=== PATIENT | female | born 1950 | race Caucasian/White ===

== ENCOUNTER 2021-01-15 11:26 | Outpatient (CLI) | payer MEDICAID, SELFPAY ==
[2021-01-15 14:29] LABS: INR 0.95 (0.8-1.2)
[2021-01-15 14:50] LABS: Basophils # 0.1 10^3/uL (0.0-0.1); Basophils % 0.9 %; Eosinophils # 0.3 10^3/uL (0.0-0.8); Eosinophils % 4.7 %; Hematocrit 49.2 % (37.0-47.0); Hemoglobin 14.8 g/dL (11.5-15.3); Lymphocytes % 28.8 %; Mean Corpuscular HGB Conc 30.1 g/dL (30.0-36.0); Mean Platelet Volume 11.3 fL (7.4-10.4); Monocytes # 0.6 10^3/uL (0.2-0.9); Monocytes % 8.9 %; Neutrophils % 56.6 %; Nucleated Red Blood Cells % 0 %; Platelet Count 216 10^3/cmm (130-400); Red Blood Count 5.93 10^6/uL (4.1-5.3); Red Cell Distribution Width 18.8 % (12.1-15.1); White Blood Count 6.9 10^3/uL (4.0-10.0)
[2021-01-15 15:58] LABS: Carcinoembryonic Antigen 21.2 ng/mL (0.0-4.7); Thyroid Stimulating Hormone 1.74 uIU/mL (0.27-4.20)
[2021-01-15 16:11] LABS: Alanine Aminotransferase 24 U/L (0-33); Albumin Level 4.1 g/dL (3.5-5.2); Alkaline Phosphatase 104 IU/L (35-105); Anion Gap 17.6 (5-19); Aspartate Amino Transferase 26 U/L (0-32); Blood Urea Nitrogen 11 mg/dL (8-23); Calcium 8.7 mg/dL (8.5-10.5); Carbon Dioxide 21 mmol/L (22-29); Chloride 105 mmol/L (98-107); Globulin 3.1 g/dL (1.3-4.6); Glomerular Filtration Rate 83.2 mL/min (90-130); Glucose 131 mg/dL (65-115); Osmolality Calculated 291 mOsm/kg (285-295); Potassium 3.6 mmol/L (3.5-5.1); Sodium 140 mmol/L (136-145); Total Bilirubin 0.2 mg/dL (0.15-1.2); Total Protein 7.2 g/dL (6.6-8.7)
[2021-01-15 16:47] LABS: CA 125 4.7 U/mL (0-35)
--- NOTE | 2021-01-15 19:28 | ONC CON_ITS ---
Dr. Gordon New Patient Note Patient: Zaina Leyva Unit #: [id number]: 1950 Dicatated By: Robby Gordon M.D.Date of Visit: Jan 15, 2021 Onc MED New Patient/Consult Referring Physician: Ary Walker N.P. Chief Complaint: Suspected liver metastases. History of Present Illness: This is a 70-year-old woman who had surgery for both ovarian cancer and colon cancer in April 2020. She now has PET/CT findings which are suspicious for metastatic involvement in the liver. She had presented with a large pelvic mass. Her CT of the abdomen/pelvis on 04/14/2020 showed a large mixed solid cystic midline pelvic mass measuring up to 16 cm, compatible with gynecologic malignancy. A right costovertebral angle cystic structure along the medial right costovertebral angle measured 3.7 x 2.5 cm. The differential included cystic metastasis versus duplication cyst. And hepatic cyst measured 2.2 cm. Additional subcentimeter hypodensities within the liver were too small to characterize. On 05/15/2020 she underwent exploratory laparotomy with total abdominal hysterectomy, bilateral salpingo-oophorectomy, and comprehensive surgical staging. Intraoperatively she was noted to have a 20 cm friable cystic and solid left ovarian mass which ruptured with gentle manipulation. Also noted was a constricting intraluminal right colon lesion along with an enlarged, indurated mesenteric lymph node which was suspicious for metastasis. The procedure also included right hemicolectomy and appendectomy. 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 The omentum and multiple peritoneal biopsies were all negative. The peritoneal fluid cytology was negative. Pathologic staging on the ovary was T1c1, N0. The colon showed moderately differentiated adenocarcinoma with invasion through the muscularis propria into the pericolorectal tissue. It measured 3 x 2 x 1 cm. The margins were free. There was evidence of lymphovascular space invasion and perineural invasion. There was involvement in 4 of 19 lymph nodes, and there was metastatic involvement noted within the left fallopian tube measuring 0.5 cm. Pathologic staging was pT3, pN2a, pM1a. She had medical oncology consultation with Dr. Thurston on 06/19/2020. She was recommended to have adjuvant chemotherapy for the colon cancer. For a variety of reasons she failed to follow through with that. Surveillance CT of the abdomen/pelvis on 11/29/2020 showed a 4.5 x 3.5 mediastinal cyst abutting the right heart border and the IVC. It was noted to have slightly increased in size from the March 2020 study. The liver showed diffuse fatty infiltration. A new peripherally enhancing hypodense lesion in the anterior aspect of the medial segment of the left lobe measured 1.6 x 1.1 x 1.6 cm, felt to possibly represent metastatic disease. A 1.2 cm portacaval lymph node appeared stable. There was interval resolution of multiple hepatic cysts noted on the prior CT. On further evaluation with PET/CT the right-sided mediastinal cyst had an SUV of 1.5. 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 The liver showed several new FDG avid lesions, including one situated to the right of the falciform ligament with SUV 8.2, another to the left of the falciform ligament along the inferior margin of the left lobe with maximum SUV 4.9 9-1/3 in the medial aspect of the right lobe abutting the vena cava with SUV 9.39. Abdominal and pelvic lymph nodes were noted to demonstrate generally physiologic levels of activity. She is seen now for further management. She says that she has been feeling really tired lately. She has been having to take naps every afternoon. Her ECOG score is 1. She has good appetite. She has gained 20 pounds since her surgery. She does not have fever, night sweats, or hot flashes. She has some shortness of breath. She has just occasional cough. She occasionally has chest pain. She has not had any nausea/vomiting. She does not complain of abdominal pain. Bowel function has been okay. She has frequent urination with her diuretic. She has no significant joint or bone pain. She has just occasional headache. She says she gets lightheaded if she waits too long to eat. She has no numbness/paresthesia or other focal neurologic symptoms. Past Medical History: Her medical history includes colon cancer, coronary artery disease, hyperlipidemia, hypertension, ovarian cancer, peripheral arterial disease, and type II diabetes. Past Surgical History: On 05/15/2020 she underwent total abdominal hysterectomy with bilateral salpingo-oophorectomy and complete surgical staging along with right hemicolectomy and appendectomy. Her other surgical/procedural history includes abdominal hernia repair with mesh, angioplasty with stent placement to the right leg and angioplasty to the left leg, excision of benign breast tumors x 3, excision of skin cancer, and a procedure for precancer of the cervix. Medications: Adult Aspirin Regimen (81 mg) Tablet, enteric coated Oral daily, Benazepril HCl (40 mg) Tablet Oral daily, Clopidogrel Bisulfate (75 mg) Tablet Oral daily, hydroCHLOROthiazide (25 mg) Tablet Oral daily, metFORMIN HCl ER (MOD) (500 mg) Tablet SR 24 HR Oral b.i.d., Metoprolol Tartrate (25 mg) Tablet Oral b.i.d., Simvastatin (40 mg) Tablet Oral daily Allergies: Codeine Sulfate, Estrogens, Keflex, Levaquin, Lortab, Penicillins, Percocet, and Valium. Social History: Ms. Leyva is . She has a history of smoking beginning at age 17, previously up to 2 packs of cigarettes daily. As of 2016 she cut down to 1 pack/day. She does not drink alcohol. Family History: Mother still living at age 88. Father of bladder cancer at age 71. One brother had childhood cancer. A sister has been treated for lymphoma and another sister had throat cancer. Her paternal grandmother had diabetes. Review Of Symptoms: Constitutional - Lately she has been feeling really tired, enough that she has been taking naps. She has good appetite. She has been gaining weight. She has no fever, night sweats, or hot flashes. ECOG score is 1, Eyes - No change in vision, ENMT - No hearing loss or tinnitus. No sinus congestion/drainage. No mouth sores. No sore throat or difficulty swallowing, Hematologic/Lymphatic - No abnormal bruising or bleeding, Respiratory - She has some shortness of breath. She has just occasional cough. No pleuritic pain or hemoptysis, Cardiovascular - She occasionally has chest pain. No palpitations, Gastrointestinal - No nausea or vomiting. No heartburn or acid reflux. No diarrhea or constipation. No blood in the stool or black stools, Genitourinary (F) - No dysuria or hematuria. She has frequent urination with her diuretic. She has nocturia x 2. No urgency or incontinence, Musculoskeletal - No significant joint or bone pain, Integumentary - No skin rash or other skin changes, Neurologic - She occasionally has headache or dizziness. She gets lightheaded if she waits too long to eat. No numbness or tingling. No other focal neurologic symptoms, Psychiatric - No anxiety or depression. No insomnia. Vital Signs: Performed on Jan 15, 2021 12:55: 8, 0, 0.00 (LOW), sq.m, 95 % (LOW), 76 /min, 18 /min, 150/80 mm(hg) (HIGH), 97.6 F (LOW), and 204.2 lbs (HIGH). Physical Examination: Constitutional - She looks pretty good generally, Eyes - Sclerae nonicteric. Conjunctivae clear, ENMT - No lesions noted in the oral cavity, Neck - No mass or thyromegaly, Hematologic/Lymphatic - No cervical, clavicular, or axillary adenopathy, Respiratory - Lungs sound clear with diminished air movement bilaterally, Cardiovascular - Heart rhythm is regular. There is no murmur, gallop, or rub noted, Abdomen - Moderately distended. Liver and spleen are not enlarged. There is no abdominal mass noted. There is no obvious ascites. There is no inguinal adenopathy, Back/Spine - No spine or CVA tenderness noted, Extremities - No edema. She has a palpable posterior tibial pulse on the right and palpable dorsalis pedis on the left, Integumentary - No rashes. No suspicious skin lesions noted, Neurologic - No focal neurologic deficits noted. Problem List: 1. Patient with PET/CT evidence of new metastatic lesions in the liver. The probability is very high that she has metastatic colon cancer. 2. On 05/15/2020 she underwent right hemicolectomy for moderately differentiated adenocarcinoma of the ascending colon. She had pathologic stage NU disease (pT3, pN2a, pM1a) with evidence of a metastatic lesion in the left fallopian tube. Her disease was completely resected. She failed to follow through with recommendations for adjuvant chemotherapy. 3. She had presented with a large pelvic mass due to a cystic left ovarian tumor. Her surgery included total abdominal hysterectomy and bilateral salpingo-oophorectomy and complete surgical staging. The cyst ruptured intra-operatively. Pathology showed moderately mucinous adenocarcinoma measuring 21 cm. Pathologic staging was T1c1, N0. 4. Hypertension. 5. Hyperlipidemia. 6. Type II diabetes. 7. Coronary artery disease. 8. Peripheral arterial disease. Problems Addressed with this Encounter and Plan: Patient with PET/CT evidence of new metastatic lesions in the liver. The PET/CT findings were reviewed with the patient and we discussed the clinic complications. As noted, the probability is very high that she has metastatic colon cancer. Assuming this is the case, her disease will potentially be treatable, but in all likelihood not curable. In this situation she will definitely require biopsy to confirm a tissue diagnosis, and to that end I will review the CT and PET/CT scans with the radiologist. Assuming that a suspicious lesion is accessible for biopsy, she can then be scheduled for CT directed needle biopsy. In the meantime, I will check baseline amatory studies today to include CBC, comprehensive metabolic profile, TSH level, CEA level, and CA-125 level. I will plan to see her again for further discussion of treatment options when the pathology results are available. Signed By: Robby Gordon M.D. <<Signature on File>>
== END 2021-01-15 11:27 | disposition home or self-care (01) ==
PROVIDERS: PCP Nurse Practitioner Family; Visit Provider Internal Medicine Medical Oncology
DX: C18.2 Malignant neoplasm of ascending colon (principal); C78.7 Secondary malignant neoplasm of liver and intrahepatic bile duct; C79.62 Secondary malignant neoplasm of left ovary; I10 Essential (primary) hypertension; E78.5 Hyperlipidemia, unspecified; E11.9 Type 2 diabetes mellitus without complications; I25.10 Atherosclerotic heart disease of native coronary artery without angina pectoris; I73.9 Peripheral vascular disease, unspecified; Z79.899 Other long term (current) drug therapy
CPT/HCPCS: 80053; 82378; 84443; 85025; 85610; 86304; 99205

== ENCOUNTER 2021-01-25 08:22 | Outpatient (CLI) | payer MEDICAID, SELFPAY ==
--- NOTE | 2021-01-25 08:36 | CT_ITS ---
WS: [id number] CT ABDOMEN CONTRAST TECHNIQUE: Contrast enhanced CT of the abdomen with coronal and sagittal reformatted images. CLINICAL INFORMATION: LIVER METS COMPARISON: Outside examinations CT November 2020 and PET/CT December 2020. Ultrasound January 25, 2021 DLP: 1033.[address] scans at [facility] use at least one of these dose optimization techniques: automat ed exposure control; mA and/or kV adjustment per patient size (includes targeted exams where dose is matched to clinical indication); or iterative reconstruction. FINDINGS: Hepatomegaly. Diffuse fatty infiltration of the liver. 3 enhancing peripheral enhancing hepatic lesio ns measuring 1.2 x 1.5 CM. 2 of these are only faintly visualized. These are suspicious for metastasi s. Enhancing lesions in the medial segment of the left hepatic lobe, medial segment of the right hepa tic lobe, and right hepatic lobe near the IVC. These correspond to the prior findings on the PET/CT. Normal portal vein and splenic vein. Normal spleen. Adrenal glands are normal. Normal renal parenchym al enhancement. No hydronephrosis. Multiple left renal cysts the largest measuring 3.2 CM. Lung bases are well aerated. Stable low-atten uation lesion in the right cardiophrenic angle likely represents pericardial cyst or duplication cyst . Lung bases are well aerated. Normal caliber abdominal aorta. Aortic calcification. Normal GE junction . No periaortic lymphadenopathy. Normal caliber abdominal aorta. Slight anterolisthesis L4 on L5. CT/CT abdomen w con* [id number] IMPRESSION: 1. Hepatomegaly with diffuse fatty infiltration of the liver. 2. Three Enhancing 1.2-1.5 cm lesions in the liver described above suspicious for metastatic disease. These correspond to the FDG avid PET/CT findings. Note on follow-up imaging recommend triphasic liver protocol for better visualizatio n 3. Right cardiophrenic angle low-attenuation cystic-appearing lesion likely pe ricardial cyst or duplication cyst. This is unchanged. 4. Incidental left renal cyst. 5. No abdominal lymphadenopathy.
--- NOTE | 2021-01-25 08:38 | US_ITS ---
WS: [id number] ULTRASOUND ABDOMEN CLINICAL INFORMATION: SUSPECTED LIVER METS COMPARISON: Prior CT December 0606/12 and 01/25/2021, PET/CT January 06, 2021 FINDINGS: Technically difficult examination due to body habitus. Liver Size: Hepatomegaly Echogenicity: Diffuse fatty infiltration Surface nodularity: None. Mass (size and location): A few incidental hepatic cysts. Additional indeterminate hypoechoic lesions measuring 1.6 x 2.2 x 0.9 cm and 1.5 x 1.1 x 1.1 CCM. Bile ducts Intrahepatic ducts: Normal. Common bile duct diameter: 0.3 cm. Gallbladder Normal. Gallstones: None. Gallbladder sludge: None. Gallbladder wall thickening: None. Pericholecystic fluid: None. Sonographic Jimenez sign: Absent. Pancreas Not well seen Spleen Splenomegaly: None. Craniocaudal length: 10.0 cm. Right kidney: Normal. Hydronephrosis: None. Size: 10.7 cm x 5.0 cm x 4.2 cm Left kidney: Normal. Hydronephrosis: None. Size: 10.4 cm x 5.1 cm x 3.7 cm. Abdominal aorta and IVC Visualized portions are normal. Ascites: None. US/US abdomen complete* [id number] IMPRESSION: Technically difficult examination due to body habitus. 1. 2 hypoechoic indeterminant hepatic lesions described above. These are indet erminate but suspicious for metastasis. 2. A few additional incidental hepatic cysts. 3. Normal gallbladder. 4. No hydronephrosis in either kidney.
[2021-01-25] MEDS: iohexol 300 mg/mL 100 mL Btl IV (10:12)
== END 2021-01-25 08:23 | disposition home or self-care (01) ==
LOC: RAD 08:25
PROVIDERS: PCP Nurse Practitioner Family; Visit Provider Internal Medicine Medical Oncology
DX: C18.2 Malignant neoplasm of ascending colon (principal); R93.2 Abnormal findings on diagnostic imaging of liver and biliary tract; K76.89 Other specified diseases of liver; K76.9 Liver disease, unspecified
CPT/HCPCS: 74160; 76700

== ENCOUNTER 2021-01-31 11:12 | Day surgery (SDC) | payer MEDICAID, SELFPAY ==
[2021-01-29 11:09] VITALS: BMI 30.8
--- NOTE | 2021-01-31 11:59 | US_ITS ---
WS: [id number] ULTRASOUND LIVER LIMITED CLINICAL INFORMATION: COLON CA, LIVER METS COMPARISON: Ultrasound January 25, [address] October 06, 2021 and Outside examinations PET/CT 2020, CT November 2020, FINDINGS/IMPRESSION LIVER Hepatomegaly with diffuse infiltration. Coarse echogenicity. Several hepatic cysts are visualized wit h through transmission. Hypoechoic 1.8 cm lesion right hepatic lobe directly adjacent to bowel also a ppears partially cystic during the examination. No definite solid lesions corresponding to the PET/CT findings that are amenable to biopsy. Findings discussed with Dr. Gordon. Consider follow-up PET/CT for comparison to prior outside PET/CT from 2020.
[2021-01-31 12:02] VITALS: BP 138/84; PULSE 80; RESP 20; TEMP 36.8; O2SAT 97
[2021-01-31 12:40] LABS: Glucose Point of Care 127 mg/dL (70-110)
[2021-01-31 12:59] LABS: INR 1.03 (0.8-1.2)
[2021-01-31] MEDS: sodium chloride 0.9% 1,000 ML 30 ML IV (13:40)
--- NOTE | 2021-01-31 14:33 | SUR.OPER ---
1430 US biopsy of liver aborted. Limited US of abdomen completed. Nothing able to be biopsied safely. Dr. Mcbride to speak to Dr. Gordon. No medications or procedures performed. IV dc'd. Pt off unit via wheelchair.
== END 2021-01-31 15:21 | disposition home or self-care (01) ==
PROVIDERS: Radiology Neuroradiology; PCP Nurse Practitioner Family; Visit Provider Internal Medicine Medical Oncology
DX: C18.9 Malignant neoplasm of colon, unspecified (principal); R16.0 Hepatomegaly, not elsewhere classified
CPT/HCPCS: 36416; 76705; 82962; 85610; 96360; J7030

== ENCOUNTER 2022-01-16 08:13 | Outpatient (CLI) | payer MEDICAID, SELFPAY ==
--- NOTE | 2022-01-17 17:49 | ONC FU_ITS ---
Dr. Gordon Patient Follow-Up Note Patient: Zaina Leyva Unit #: [id number]: 1950 Dicatated By: Robby Gordon M.D.Date of Visit:Jan 16, 2022 Onc Med Follow-up/Prog Note Chief Complaint: Suspected liver metastases. History of Present Illness: This is a 71 year-old woman who had surgery for both ovarian cancer and colon cancer in April 2020. She has PET/CT findings which are consistent with metastatic involvement in the liver. She had originally presented with a large pelvic mass. Her CT of the abdomen/pelvis on 04/14/2020 showed a large mixed solid cystic midline pelvic mass measuring up to 16 cm, compatible with gynecologic malignancy. A right costovertebral angle cystic structure along the medial right costovertebral angle measured 3.7 x 2.5 cm. The differential included cystic metastasis versus duplication cyst. And hepatic cyst measured 2.2 cm. Additional subcentimeter hypodensities within the liver were too small to characterize. On 05/15/2020 she underwent exploratory laparotomy with total abdominal hysterectomy, bilateral salpingo-oophorectomy, and comprehensive surgical staging. Intraoperatively she was noted to have a 20 cm friable cystic and solid left ovarian mass which ruptured with gentle manipulation. Also noted was a constricting intraluminal right colon lesion along with an enlarged, indurated mesenteric lymph node which was suspicious for metastasis. The procedure also included right hemicolectomy and appendectomy. 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 The omentum and multiple peritoneal biopsies were all negative. The peritoneal fluid cytology was negative. Pathologic staging on the ovary was T1c1, N0. The colon showed moderately differentiated adenocarcinoma with invasion through the muscularis propria into the pericolorectal tissue. It measured 3 x 2 x 1 cm. The margins were free. There was evidence of lymphovascular space invasion and perineural invasion. There was involvement in 4 of 19 lymph nodes, and there was metastatic involvement noted within the left fallopian tube measuring 0.5 cm. Pathologic staging was pT3, pN2a, pM1a. She had medical oncology consultation with Dr. Thurston on 06/19/2020. She was recommended to have adjuvant chemotherapy for the colon cancer. For a variety of reasons she failed to follow through with that. Surveillance CT of the abdomen/pelvis on 11/29/2020 showed a 4.5 x 3.5 mediastinal cyst abutting the right heart border and the IVC. It was noted to have slightly increased in size from the March 2020 study. The liver showed diffuse fatty infiltration. A new peripherally enhancing hypodense lesion in the anterior aspect of the medial segment of the left lobe measured 1.6 x 1.1 x 1.6 cm, felt to possibly represent metastatic disease. A 1.2 cm portacaval lymph node appeared stable. There was interval resolution of multiple hepatic cysts noted on the prior CT. On further evaluation with PET/CT the right-sided mediastinal cyst had an SUV of 1.5. 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 The liver showed several new FDG avid lesions, including one situated to the right of the falciform ligament with SUV 8.2, another to the left of the falciform ligament along the inferior margin of the left lobe with maximum SUV 4.9 9-1/3 in the medial aspect of the right lobe abutting the vena cava with SUV 9.39. Abdominal and pelvic lymph nodes were noted to demonstrate generally physiologic levels of activity. I had seen her initially on 01/15/2021. At that time her CA-125 level was normal at 4.7 U/mL. Her CEA was elevated at 21.2 ng/mL. Repeat CT of the abdomen on 01/25/2021 showed 3 peripheral enhancing hepatic lesions, the largest measuring 1.2 x 1.5 cm, suspicious for metastases. A right cardiophrenic angle low-attenuation cystic-appearing lesion appeared to be likely pericardial cyst or duplication cyst. There was no abdominal lymphadenopathy noted. She was then evaluated with ultrasound for potential biopsy, but the lesions were not well visualized. Overall, though, the findings appeared most consistent with metastatic colon cancer. Her repeat PET/CT on 08/14/2021 reported a large increase in the size and level of activity in the several previously identified metastatic lesions in the liver. Also noted were new highly FDG avid nodes in the portal region and in the interaortocaval region. She then underwent ultrasound-guided core biopsy of the liver on 10/25/2021. Pathology was consistent with metastatic colon cancer. By next generation sequencing, the tumor was noted to harbor a BRAF V600E mutation. There were no other actionable mutations identified. The tumor was noted to be MSI stable, and it was negative for overexpression of HER-2/hailee. Arin is seen for a visit. She says she has been feeling tired a lot, but she is still able to do housework and yard work. ECOG score is 1. She has good appetite, but she has been losing weight. She does not have fever or night sweats. She complains that she has been getting nosebleeds. She has not had sore mouth or throat. She has occasional cough, attributable to smoking. She says her breathing is okay. She occasionally has chest pain. She has nausea occasionally, and she complains that she has a lot of gas. Her stools are sometimes hard, but bowel function remains adequate. She has no complaints. She has no significant joint or bone pain. She does not complain of headaches. She has has her balance sucks. She has no focal neurologic symptoms. Medications: Adult Aspirin Regimen (81 mg) Tablet, enteric coated Oral daily, Benazepril HCl (40 mg) Tablet Oral daily, Clopidogrel Bisulfate (75 mg) Tablet Oral daily, hydroCHLOROthiazide (25 mg) Tablet Oral daily, metFORMIN HCl ER (MOD) (500 mg) Tablet SR 24 HR Oral b.i.d., Metoprolol Tartrate (25 mg) Tablet Oral b.i.d., Simvastatin (40 mg) Tablet Oral daily Allergies: Codeine Sulfate, Estrogens, Keflex, Levaquin, Lortab, Penicillins, Percocet, and Valium. Vital Signs: Performed on Jan 16, 2022 08:28 Height - 67.50 in BP - 147/78 mm(hg) (HIGH) Performed on Jan 16, 2022 08:26 Height - 67.5 in Weight - 188.8 lbs (LOW) BSA - 1.98 sq.m BMI - 29.13 Temperature - 97.2 F (LOW) Pulse - 67 /min Respiration - 18 /min BP - 171/73 mm(hg) (HIGH) O2 Sat - 99 % Pain - 0 Fatigue - 8 Physical Examination: Constitutional - She still looks pretty good generally, Eyes - Sclerae nonicteric. Conjunctivae clear, ENMT - No lesions noted in the oral cavity, Hematologic/Lymphatic - No cervical, clavicular, or axillary adenopathy, Respiratory - Lungs sound clear with diminished air movement bilaterally, Cardiovascular - Heart rhythm is regular. There is no murmur, gallop, or rub noted, Abdomen - Soft. Liver is not overtly enlarged or tender. Spleen is not palpable. There is no abdominal mass noted. There is no obvious ascites. There is no inguinal adenopathy, Extremities - No edema. The lower legs and feet are cool to touch, and there is a dark red to purplish discoloration, Neurologic - No focal neurologic deficits noted. Problem List: 1. Biopsy-proven metastatic colon cancer involving the liver, MSI stable. By next generation sequencing, the tumor was noted to harbor a BRAF V600E mutation. 2. She had previous history of right hemicolectomy for moderately differentiated adenocarcinoma of the ascending colon in April 2020. She had pathologic stage Ekaterina disease (pT3, pN2a, pM1a) with evidence of a metastatic lesion in the left fallopian tube. Her disease was completely resected. She failed to follow through with recommendations for adjuvant chemotherapy. 3. She also had evidence of a large pelvic mass due to a cystic left ovarian tumor. Her surgery included total abdominal hysterectomy and bilateral salpingo-oophorectomy and complete surgical staging. The cyst ruptured intra-operatively. Pathology showed moderately mucinous adenocarcinoma measuring 21 cm. Pathologic staging was T1c1, N0. 4. Hypertension. 5. Hyperlipidemia. 6. Type II diabetes. 7. Coronary artery disease. 8. Peripheral arterial disease. Problems Addressed with this Encounter and Plan: Patient with biopsy-proven metastatic colon cancer involving the liver, MSI stable. By next generation sequencing, the tumor was noted to harbor a BRAF V600E mutation. There appeared to be limited involvement within the liver at the time it was initially discovered, which was approximately a year ago. She had initially declined evaluation. Her repeat PET/CT in July 2021 did show significant progression of the hepatic metastatic disease, and it was confirmed the metastatic colon cancer by liver biopsy in October 2021. I reviewed the PET/CT findings, and we discussed the clinical implications. I did not have the images available to review with her. However, she is aware that she has metastatic disease and that it is not curable. With standard chemotherapy the response rates are in the range of 50% and the average survivals with metastatic disease are in the range of 2-3 years. At this point she indicates that she does not want to attempt any chemotherapy. The only other treatment option, in the presence of the BRAF V600E mutation, would be the combination of encorafenib and panitumumab, but that would be off label treatment, as it currently is approved only as a second line treatment after chemotherapy. When I have the images available, I will plan to review the PET/CT with the radiologist to get a better sense of how much the cancer has progressed, and she can then decide if she wants to attempt any treatment. Signed By: Robby Gordon M.D. <<Signature on File>>
== END 2022-01-16 08:14 | disposition home or self-care (01) ==
PROVIDERS: PCP Nurse Practitioner Family; Visit Provider Internal Medicine Medical Oncology
DX: C18.9 Malignant neoplasm of colon, unspecified (principal); C78.7 Secondary malignant neoplasm of liver and intrahepatic bile duct; I10 Essential (primary) hypertension; E78.5 Hyperlipidemia, unspecified; E11.9 Type 2 diabetes mellitus without complications; I25.10 Atherosclerotic heart disease of native coronary artery without angina pectoris; I73.9 Peripheral vascular disease, unspecified; Z79.899 Other long term (current) drug therapy
CPT/HCPCS: 99215